=== PATIENT | male | born 1995 | race African-American/Black ===

== ENCOUNTER 2019-07-25 14:25 | Emergency (ER) | payer OTHER ==
[~2019-07-25] VITALS: Ht 182.9 cm; Wt 68.2 kg
[2019-07-25 14:39] VITALS: Ht 182.9 cm; Wt 68.2 kg
[2019-07-25 15:50] VITALS: BP 130/71
== END 2019-07-25 15:50 | disposition home or self-care (01) ==
LOC: D.ER 14:25
DX: L65.9 Nonscarring hair loss, unspecified (principal); F17.210 Nicotine dependence, cigarettes, uncomplicated